=== PATIENT | male | born 1950 | race Caucasian/White ===

== ENCOUNTER 2018-09-06 15:17 | Outpatient (CLI) | END 2018-09-06 15:18 | disposition home or self-care (01) | LOC: FCC-LAB 15:17 | PROVIDERS: ATTEND Family Medicine | DX: N20.0 Calculus of kidney (principal); R10.13 Epigastric pain; Z78.9 Other specified health status; Z12.11 Encounter for screening for malignant neoplasm of colon | CPT/HCPCS: 36415; 80053; 81001; 85025 ==

== ENCOUNTER 2018-09-07 14:26 | Outpatient (CLI) | payer OTHER | END 2018-09-07 14:27 | disposition home or self-care (01) | LOC: FCC-LAB 14:26 | PROVIDERS: ATTEND Family Medicine | DX: R10.13 Epigastric pain (principal) | CPT/HCPCS: 87338 ==

== ENCOUNTER 2018-10-07 15:53 | Emergency (ER) ==
[2018-10-07 15:57] VITALS: BP 165/101; TEMP 98.4; BMI 28.5
[2018-10-07] MEDS ORDERED: LIDOCAINE HCL 1% SDV ONE (16:11)
[2018-10-07] MEDS ORDERED: LIDOCAINE HCL 1% SDV SUBCUT STA (16:16)
[2018-10-07] MEDS ORDERED: ANCEF 1 GM in SODIUM CHLORIDE 100 ML IV STA (17:01)
--- NOTE | 2018-10-07 17:01 | ED.PDOC ---
General ED Provider: Dr. DIALLO DOYLE Chief Complaint: Finger Laceration Stated Complaint: Hand/Index finger injury/patient evaluated and treated previoulsy. Assessed by RN and Sutures removed under by direction Time Seen by Physician: 11:45 (by RN ) Mode of Arrival: Walk-In Information Source: Patient Primary Care Provider: KT GARCIA Nursing and Triage Documentation Reviewed and Agree: Yes Does patient meet sepsis criteria?: Yes If yes, has appropriate treatment been initiated?: No System Inflammatory Response Syndrome: Not Applicable Sepsis Protocol: For patient's 13 years and over: Temp is 96.8 and below OR 101 and greater Pulse >90 BPM Resp >20/minute Acutely Altered Mental Status Are patient's symptoms suggestive of a new infection, such as: -Pneumonia -Skin, Soft Tissue -Endocarditis -UTI -Bone, Joint Infection -Implantable Device -Acute Abdominal Infection -Wound Infection -Meningitis -Blood Stream Catheter Infection -Unknown Review of Systems - Review Of Systems Constitutional: Reports: No symptoms Eyes: Reports: No symptoms Ears, Nose, Mouth, Throat: Reports: No symptoms Respiratory: Reports: No symptoms Cardiac: Reports: No symptoms GI: Reports: No symptoms : Reports: No symptoms Musculoskeletal: Reports: No symptoms Skin: Reports: No symptoms Neurological: Reports: No symptoms Endocrine: Reports: No symptoms Hematologic/Lymphatic: Reports: No symptoms All Other Systems: Reviewed and Negative Past Medical History - Past Medical History Previously Healthy: Yes Endocrine: Reports: None Cardiovascular: Reports: None Respiratory: Reports: None Hematological: Reports: None Gastrointestinal: Reports: None Genitourinary: Reports: None Neuro/Psych: Reports: None Musculoskeletal: Reports: None Cancer: Reports: None - Surgical History General Surgical History: Reports: None - Family History Family History: Reports: None - Social History Smoking Status: Former smoker Hx Substance Use: No Alcohol Screening: Occasionally - Immunizations Tetanus Shot up to Date: Yes (last year) Physical Exam - Physical Exam Appearance: Well-appearing, No pain distress, Well-nourished Eyes: FLORES, EOMI, Conjunctiva clear ENT: Ears normal, Nose normal, Oropharynx normal Respiratory: Airway patent, Breath sounds clear, Breath sounds equal, Respirations nonlabored Cardiovascular: RRR, Pulses normal, No rub, No murmur GI/: Soft, Nontender, No masses, Bowel sounds normal, No Organomegaly Musculoskeletal: Normal strength, ROM intact, No edema, No calf tenderness Skin: Warm, Dry, Normal color Neurological: Sensation intact, Motor intact, Reflexes intact, Cranial nerves intact, Alert, Oriented Psychiatric: Affect appropriate, Mood appropriate Critical Care Note - Critical Care Note Total Time (mins): 0 Course - Course Orders, Labs, Meds: Orders Category Date Time Status IV [ED IV/MEDIPORT/POWERPORT] .ONCE EMERGENCY 10/07/18 17:01 Active 0.9 % Sodium Chloride [Saline Flush] MEDS 10/07/18 17:01 Discontinued 1 syr IVF PRN PRN Cefazolin Sodium [Ancef] MEDS 10/07/18 17:12 Discontinued 1 gm IM ONCE STA Cefazolin Sodium [Ancef] 1 gm MEDS 10/07/18 17:01 Discontinued 0.9 % Sodium Chloride [Sodium Chloride] 100 ml IV ONCE Ceftriaxone Sodium [Rocephin] MEDS 10/07/18 17:17 Discontinued 1 gm IM ONCE STA Lidocaine HCl/Pf [Lidocaine HCl 1% Sdv] MEDS 10/07/18 17:17 Discontinued 2.1 ml IM ONCE STA Lidocaine HCl/Pf [Lidocaine HCl 1% Sdv] MEDS 10/07/18 16:11 Discontinued 5 ml .ROUTE .STK-MED ONE Lidocaine HCl/Pf [Lidocaine HCl 1% Sdv] MEDS 10/07/18 16:16 Discontinued 5 ml SUBCUT ONCE STA Medications Discontinued Medications Generic Name Dose Route Start Last Admin Trade Name Freq PRN Reason Stop Dose Admin Cefazolin Sodium 1 gm 10/07/18 17:12 10/07/18 17:24 Ancef IM 10/07/18 17:13 Not Given ONCE STA Ceftriaxone Sodium 1 gm 10/07/18 17:17 10/07/18 17:25 Rocephin IM 10/07/18 17:18 1 gm ONCE STA Administration Cefazolin Sodium 1 gm/ Sodium 100 mls @ 100 mls/hr 10/07/18 17:01 10/07/18 17 :24 Chloride IV 10/07/18 18:00 Not Given ONCE STA Lidocaine HCl 5 ml 10/07/18 16:16 10/07/18 17:12 Lidocaine Hcl 1% Sdv SUBCUT 10/07/18 16:17 Not Given ONCE STA Lidocaine HCl 2.1 ml 10/07/18 17:17 10/07/18 17:27 Lidocaine Hcl 1% Sdv IM 10/07/18 17:18 2.1 ml ONCE STA Administration Sodium Chloride 1 syr 10/07/18 17:01 Saline Flush IVF PRN PRN To flush IV Vital Signs: Temp Pulse Resp BP Pulse Ox 10/07/18 15:53 98.4 F 91 H 20 165/101 H 95 Departure - Departure Time of Disposition: 17:20 Disposition: HOME SELF-CARE Discharge Problem: Laceration of index finger of left hand without complication Instructions: Care For Your Stitches (ED), Laceration (ED) Condition: Good Pt referred to PMD for follow-up: Yes (5-7 days) IPMP verified?: No Additional Instructions: Take meds as directed IF symptoms worsen return to ER Suture Removal in 10 days Wound check in 5-6 days Prescriptions: Acetaminophen with Codeine [Tylenol #3 Tab] 1 tab PO Q4H PRN #20 tablet PRN Reason: Moderate Pain Cephalexin [Keflex] 500 mg PO TID #30 capsule Allergies/Adverse Reactions: Allergies amoxicillin Allergy (Verified 10/07/18 15:57) Home Medications: Ambulatory Orders Alpha Lipoic Acid [Lipoic Acid] 25 gm MC DAILY powder 04/26/18 Arginine 500 mg PO DAILY 04/26/18 Levocarnitine Tartrate [L-Carnitine] 250 mg PO DAILY 04/26/18 Prasterone (Dhea) [Dehydroepiandrosterone] 25 gm MC DAILY powder 04/26/18 Ubidecarenone [Co Q-10] 100 mg PO DAILY 04/26/18 Acetaminophen with Codeine [Tylenol #3 Tab] 1 tab PO Q4H PRN #20 tablet C,E,Zinc,Copper 11/Iwdnn9q/Lut [Ocuvite Adult 50 Plus Softgel] 1 each PO DAILY 10/07/18 Cephalexin [Keflex] 500 mg PO TID #30 capsule 10/07/18 Disposition Discussed With: Patient, Family
[2018-10-07] MEDS ORDERED: ANCEF IM STA (17:12)
[2018-10-07] MEDS ORDERED: ROCEPHIN IM STA (17:17)
[2018-10-07] MEDS ORDERED: LIDOCAINE HCL 1% SDV IM STA (17:17)
--- NOTE | 2018-11-24 11:53 | ER ---
This dictation letter supersedes the initial medical record on the chart as a result of incorrect entry in which stated compliant. CHIEF COMPLAINT: Laceration to the left index finger. HISTORY OF PRESENT ILLNESS: The patient states that he was working around the house and was moving some tami pots. He was not wearing gloves. One of the pots had sloughed off part of the material making the edge very sharp at which time he accidentally came in contact with it and his left had sustained an extensive laceration to the left index finger. He presents then for evaluation and for treatment. On initial inspection of the wound it appears that he has a flap type laceration measuring approximately 3.5 cm. PROCEDURE NOTE: The anticipated procedure was explained to the patient and he stated understanding. The left hand had been soaking in Hibiclens and normal saline. The area around the left index finger, middle finger, palmar aspect of the area and first digit was prepped with a Betadine solution followed by draping in a sterile fashion. 1% Xylocaine plain was used to infiltrate the proximal aspect of the digit for a digital block. After adequate anesthesia was obtained, the wound was further inspected and irrigated with normal saline. The wound edges were approximated utilizing interrupted 4-0 Nylon suture with all wound margins reapproximated in an appropriate fashion. Hemostasis was maintained adequately at all times. Upon completion of the repair, appropriate wound care was provided by a member of the nursing staff. Recommended infusion of IV antibiotics, however, the patient preferred not to have to wait for an IV antibiotic to be infused. Therefore injectable antibiotic was administered. Rocephin 1 gram was administered IM. IMPRESSION: 1. LACERATION OF THE INDEX FINGER OF THE LEFT HAND PLAN: Instructions for wound care was provided. The patient had instructions to follow up with ER in 5-7 days for evaluation or to his primary care provider. He was provided instructions on wound care, plus provided with prescriptions for pain management with Tylenol with Codeine and Cephalexin. MARITZA
== END 2018-10-07 17:43 | disposition home or self-care (01) ==
LOC: ED 15:53
DX: S61.211A Laceration without foreign body of left index finger without damage to nail, initial encounter (principal); W26.8XXA Contact with other sharp object(s), not elsewhere classified, initial encounter
CPT/HCPCS: 96372; 99283